=== PATIENT | female | born 1955 | race Caucasian/White ===

== ENCOUNTER 2020-07-18 18:38 | Emergency (ER) | payer OTHER ==
[~2020-07-18] VITALS: Ht 165.1 cm; Wt 74.8 kg
[2020-07-18] MEDS ORDERED: WELLBUTRIN SR100 MG PO (20:17)
[2020-07-18 21:51] LABS: ABSOLUTE NEUTROPHILS 4.6 thou/uL (1.4-8.2); BASOPHILS 1.1 % (0.0-2.0); EOSINOPHILS 2.5 % (0.0-3.0); HEMATOCRIT 38.7 % (37.0-47.0); HEMOGLOBIN 13.2 gm/dL (12.0-15.0); LYMPHOCYTES 35.7 % (24.0-44.0); MCH 30.9 pg (26.0-34.0); MCHC 34.1 g/dL (28.0-37.0); MCV 90.5 fL (80.0-100.0); MONOCYTES 8.2 % (1.0-8.0); PLATELET COUNT 320 thou/uL (150-400); POLYS 52.5 % (36.0-66.0); RBC 4.27 mil/uL (4.20-5.00); RDW 14.7 % (10.5-14.5); WBC 8.8 thou/uL (4.0-11.0)
[2020-07-18 22:06] LABS: ANION GAP 9 mmol/L (7-16); BUN 18 mg/dL (7-18); CALCIUM 9.3 mg/dL (8.5-10.1); CHLORIDE 99 mmol/L (98-107); CO2 28 mmol/L (21-32); CREATININE 1.3 mg/dL (0.6-1.0); GLUCOSE 133 mg/dL (74-106); MAGNESIUM 2.1 mg/dL (1.8-2.4); SODIUM 136 mmol/L (136-145); TROPONIN-I <0.06 ng/mL (<0.06)
[2020-07-18 22:16] LABS: URINE BILIRUBIN NEGATIVE (Negative); URINE BLOOD NEGATIVE (Negative); URINE CLARITY CLEAR; URINE COLOR YELLOW; URINE GLUCOSE-RANDOM* NEGATIVE (Negative); URINE KETONES NEGATIVE (Negative); URINE LEUKOCYTES-REFLEX 1+ (Negative); URINE NITRITE-REFLEX NEGATIVE (Negative); URINE PROTEIN (DIPSTICK) NEGATIVE (Negative); URINE UROBILINOGEN 0.2 E.U./dl (0.2-1.0)
[2020-07-18 22:20] LABS: POTASSIUM 2.9 mmol/L (3.5-5.1)
[2020-07-18 22:45] LABS: BACTERIA-REFLEX 1-9 Few /HPF (None Seen); MUCUS 0-3 Light strn/LPF (None Seen); SQUAMOUS 4-10 Moderate /LPF (0-3); URINE RBC 0-2 Rare /HPF (0-2); URINE WBC-REFLEX 6-15 Few /HPF (0-5)
[2020-07-18 22:46] LABS: CASTS None Seen /LPF (None Seen); CRYSTALS None Seen /LPF (None Seen)
[2020-07-18] MEDS ORDERED: KEFLEX500 M1 PO (23:50)
[2020-07-18] MEDS ORDERED: POTASSIUM20 PO (23:50)
[2020-07-19 00:34] VITALS: BP 115/64
--- NOTE | 2020-07-19 07:25 | EKG ---
[facility] [place] [address] ELECTROCARDIOGRAM REPORT Name: DREW KIMBALL Room #: [facility] [id number] Admission: 07/18/20 Attend Phys: Discharge: 07/19/20 Date of : 53 Report #: [id number] THIS REPORT FOR: cc: [facility] - Clinic physician unknown [facility] - Clinic physician unknown Kehinde Bergeron MD [facility] ~ THIS REPORT FOR: //name// [facility] ED Test Date: 2020-07-18 Test Time: 21:55:39 Pat Name: DREW KIMBALL Department: Room: Gender: F Keysmith: PARTH : 1955 Requested By: Jose L Ramirez Order Number: [id number] MD: Kehinde Bergeron Measurements Intervals [place]: 69 P: 74 NM: 152 QRS: 25 QRSD: 99 T: 76 QT: 421 QTc: 451 Interpretive Statements Sinus rhythm Low voltage, precordial leads No previous ECG available for comparison Electronically Signed On 07-19-2020 7:25:22 [employer] by Kehinde Bergeron [email or web address] <ELECTRONICALLY SIGNED> By: Kehinde Bergeron MD, FACC 07/19/20 0725 [id number] 54 Kehinde Bergeron MD, FACC /EPI
== END 2020-07-19 00:35 | disposition home or self-care (01) ==
LOC: ER 18:38
PROVIDERS: Emergency Medicine
DX: R51.9 Headache, unspecified (principal); N39.0 Urinary tract infection, site not specified; E86.0 Dehydration; I10 Essential (primary) hypertension; Z79.899 Other long term (current) drug therapy; Z88.5 Allergy status to narcotic agent; Z20.828 Contact with and (suspected) exposure to other viral communicable diseases